=== PATIENT | male | born 1995 | race Caucasian/White ===

== ENCOUNTER 2016-10-27 20:17 | Emergency (ER) | payer MEDICAID ==
[~2016-10-27] VITALS: Ht 167.6 cm; Wt 65.9 kg
[2016-10-27 21:00] LABS: HEMATOCRIT 48.9 % (39.2-51.8); HEMOGLOBIN 16.5 g/dL (13.7-18.0); WHITE BLOOD COUNT 9.1 x10^3/uL (3.4-10)
[2016-10-27] MEDS ORDERED: SODIUM CHLORIDE 0.9% 1,000ML IVBOLUS ONE (21:00)
[2016-10-27 21:09] LABS: ASPARTATE AMINO TRANSFERASE 25 U/L (15-37); BLOOD UREA NITROGEN 11 mg/dL (7-18)
[2016-10-27 22:00] LABS: DAU SCREEN DISCLAIMER
[2016-10-27 22:45] VITALS: BP 125/83
== END 2016-10-27 23:32 | disposition home or self-care (01) ==
LOC: ED 21:08
DX: R56.9 Unspecified convulsions (principal); F15.129 Other stimulant abuse with intoxication, unspecified; F12.129 Cannabis abuse with intoxication, unspecified
CPT/HCPCS: 36415; 70450; 80053; 80307; 85025; 93005; 96360; 96361; 99285; J7030